=== PATIENT | female | born 1960 | race Caucasian/White ===

== ENCOUNTER 2021-07-18 00:35 | Inpatient (IN) | payer BC ==
[2021-07-18] VITALS (683 sets, daily range): BP systolic 63–158; BP diastolic 50–109; PULSE 62–74; TEMP 97.5–97.8; O2SAT 78–100
[~2021-07-18] VITALS: Ht 170.2 cm; Wt 84.8 kg
[2021-07-18 01:05] LABS: BASO % 0.1 % (0.0-2.0); GRAN # 7.9 (1.4-6.5); GRAN % 86.4 % (42.2-75.2); HEMATOCRIT 40.4 % (37.0-47.0); HEMOGLOBIN 14.1 g/dl (12.5-16.0); LYMPH # 0.9 (1.2-3.4); LYMPH % 9.3 % (20.0-51.0); MEAN CELL VOLUME 84 fl (80.0-100.0); MEAN CORPUSCULAR HEMOGLOBIN 29 pg (27.0-31.0); MEAN CORPUSCULAR HGB CONC 35 g/dl (33.0-37.0); MEAN PLATELET VOLUME 9.6 fl (7.4-10.4); MONO # 0.3 (0.1-0.6); MONO % 3.7 % (1.7-9.3); PLATELET COUNT 244 K/mm3 (130-400); RED BLOOD COUNT 4.82 M/mm3 (4.10-5.30); REDCELL DISTRIBUTION WIDTH-CV 13.2 % (11.5-14.5)
[2021-07-18 01:22] LABS: ALBUMIN 2.9 gm/dL (3.4-4.8); BILIRUBIN,TOTAL 0.5 mg/dL (0.2-1.2); CALCIUM 8.5 mg/dL (8.4-10.2); CREATININE, serum 1.44 mg/dL (0.57-1.11); POTASSIUM 3.2 mmol/L (3.5-4.5); TOTAL PROTEIN 6.8 gm/dL (6.2-8.1)
[2021-07-18 01:41] LABS: TROPONIN-I 0.114 ng/mL (0.00-0.033)
[2021-07-18 03:39] LABS: ARTERIAL BLD GAS O2 SATURATION 88.4 % (92-100); ARTERIAL BLD GAS TCO2 CT 22.9; ARTERIAL BLOOD GAS BASE EXCESS 0.1 (-2-2); ARTERIAL BLOOD GAS PCO2 28.7 mmHg (35-45); ARTERIAL BLOOD GAS PO2 51.8 mmHg (80-100)
[2021-07-18 05:04] LABS: ARTERIAL BLD GAS O2 SATURATION 88.6 % (92-100); ARTERIAL BLD GAS TCO2 CT 23.7; ARTERIAL BLOOD GAS BASE EXCESS 0.4 (-2-2); ARTERIAL BLOOD GAS HCO3 22.8 meq/L (22-26); ARTERIAL BLOOD GAS PCO2 30.6 mmHg (35-45); ARTERIAL BLOOD GAS PO2 52.1 mmHg (80-100); ARTERIAL BLOOD GAS pH 7.49 (7.35-7.45)
[2021-07-18 05:44] LABS: BASO % 0.1 % (0.0-2.0); GRAN # 7.8 (1.4-6.5); GRAN % 88.9 % (42.2-75.2); HEMATOCRIT 39.4 % (37.0-47.0); HEMOGLOBIN 13.5 g/dl (12.5-16.0); LYMPH # 0.7 (1.2-3.4); LYMPH % 7.9 % (20.0-51.0); MEAN CELL VOLUME 85 fl (80.0-100.0); MEAN CORPUSCULAR HEMOGLOBIN 29 pg (27.0-31.0); MEAN CORPUSCULAR HGB CONC 34 g/dl (33.0-37.0); MEAN PLATELET VOLUME 9.7 fl (7.4-10.4); MONO # 0.2 (0.1-0.6); MONO % 2.6 % (1.7-9.3); PLATELET COUNT 229 K/mm3 (130-400); RED BLOOD COUNT 4.62 M/mm3 (4.10-5.30); REDCELL DISTRIBUTION WIDTH-CV 13.4 % (11.5-14.5)
--- NOTE | 2021-07-18 07:00 | NUR ---
RECEIVED REPORT FROM JEANNIE CHISHOLM. PT SITTING UP IN BED ON BIPAP AT 85%. VSS. CALL LIGHT WITHIN REACH.
[2021-07-18 07:05] LABS: CALCIUM 8.3 mg/dL (8.4-10.2); CREATININE, serum 1.16 mg/dL (0.57-1.11); POTASSIUM 3.9 mmol/L (3.5-4.5)
[2021-07-18 07:13] LABS: TROPONIN-I 6 HR POST INITIAL 1.008 ng/mL (0.00-0.033)
--- NOTE | 2021-07-18 07:45 | NUR ---
RT AT BEDSIDE PERFORMING EKG. PLACES PT ON 85% BIPAP AT THIS TIME.
[2021-07-18 09:14] LABS: PARTIAL THROMBOPLASTIN TIME 24.8 SECONDS (26.0-37.0)
--- NOTE | 2021-07-18 13:36 | NUR ---
SW attempted to contact patient's son, Uzair ([phone]), listed as NOK. Patient is in isolation d/t COVID precautions. This worker left vm for son to contact me regarding d/c planning. SW will follow up
--- NOTE | 2021-07-18 21:06 | NUR ---
Assessment complete and charted. Patient ambulated to restroom- shortness of breath present. Was able to maintain oxygen saturations. Denies needs at this time. Call light in reach.
--- NOTE | 2021-07-18 22:00 | NUR ---
Patient bipap settings originally 14 over 8 and 75% fiO2. Patient oxygen saturations in high 80s. Respiratory changed settings to 14 over 10 and FiO2 of 80%. Greta barajas
[2021-07-19] VITALS (664 sets, daily range): BP systolic 136–149; BP diastolic 70–116; PULSE 67–76; TEMP 98–99.4; O2SAT 73–100
--- NOTE | 2021-07-19 00:15 | NUR ---
Resting in bed. Denies needs. Call light in reach.
[2021-07-19 04:14] LABS: ARTERIAL BLD GAS O2 SATURATION 97.6 % (92-100); ARTERIAL BLD GAS TCO2 CT 22.6; ARTERIAL BLOOD GAS BASE EXCESS -0.7 (-2-2); ARTERIAL BLOOD GAS HCO3 21.6 meq/L (22-26); ARTERIAL BLOOD GAS PCO2 29.6 mmHg (35-45); ARTERIAL BLOOD GAS PO2 92.5 mmHg (80-100); ARTERIAL BLOOD GAS pH 7.48 (7.35-7.45)
--- NOTE | 2021-07-19 06:40 | NUR ---
Patient remained on bipap throughout night. Uneventful. Resting in bed this AM. Call light in reach.
--- NOTE | 2021-07-19 07:04 | NUR ---
Report given to JEANNIE Chisholm
[2021-07-19 07:07] LABS: BASO % 0.1 % (0.0-2.0); GRAN # 13.1 K/mm3 (1.4-6.5); HEMATOCRIT 38.5 % (37.0-47.0); LYMPH # 1.5 K/mm3 (1.2-3.4); LYMPH % 9.7 % (20.0-51.0); MEAN CELL VOLUME 87 fl (80.0-100.0); MEAN CORPUSCULAR HEMOGLOBIN 29 pg (27.0-31.0); MEAN CORPUSCULAR HGB CONC 34 g/dl (33.0-37.0); MEAN PLATELET VOLUME 9.8 fl (7.4-10.4); MONO # 0.5 K/mm3 (0.1-0.6); MONO % 3.1 % (1.7-9.3); PLATELET COUNT 317 K/mm3 (130-400); RED BLOOD COUNT 4.43 M/mm3 (4.10-5.30); REDCELL DISTRIBUTION WIDTH-CV 13.7 % (11.5-14.5)
[2021-07-19 07:15] LABS: CALCIUM 8.1 mg/dL (8.4-10.2); CREATININE, serum 0.84 mg/dL (0.57-1.11); POTASSIUM 3.9 mmol/L (3.5-4.5)
--- NOTE | 2021-07-19 10:48 | NUR ---
Pt tolerated trip to CT and back well.
--- NOTE | 2021-07-19 19:59 | NUR ---
Assessment complete and charted. Patient denies needs at this time. Denies shortness of breath. On bipap. call light in reach.
[2021-07-20] VITALS (648 sets, daily range): BP systolic 142–162; BP diastolic 79–99; PULSE 60–76; TEMP 97.8–98.7; O2SAT 77–100
[2021-07-20 04:02] LABS: ARTERIAL BLD GAS TCO2 CT 23.3; ARTERIAL BLOOD GAS BASE EXCESS -0.1 (-2-2); ARTERIAL BLOOD GAS HCO3 22.4 meq/L (22-26); ARTERIAL BLOOD GAS PCO2 30.1 mmHg (35-45); ARTERIAL BLOOD GAS PO2 71.2 mmHg (80-100); ARTERIAL BLOOD GAS pH 7.49 (7.35-7.45)
[2021-07-20 06:20] LABS: HEMOGLOBIN 11.7 g/dl (12.5-16.0); MEAN CELL VOLUME 87 fl (80.0-100.0); MEAN CORPUSCULAR HEMOGLOBIN 29 pg (27.0-31.0); MEAN CORPUSCULAR HGB CONC 34 g/dl (33.0-37.0); MEAN PLATELET VOLUME 9.4 fl (7.4-10.4); PLATELET COUNT 286 K/mm3 (130-400); RED BLOOD COUNT 3.98 M/mm3 (4.10-5.30); REDCELL DISTRIBUTION WIDTH-CV 13.7 % (11.5-14.5)
--- NOTE | 2021-07-20 06:23 | NUR ---
Patient wore bipap throughout night. Uneventful night. Resting in bed this AM. Call light in reach.
[2021-07-20 06:33] LABS: HEMATOCRIT 34.6 % (37.0-47.0)
[2021-07-20 06:39] LABS: CALCIUM 7.8 mg/dL (8.4-10.2); CREATININE, serum 0.75 mg/dL (0.57-1.11)
--- NOTE | 2021-07-20 07:00 | NUR ---
Redrew HepXa due to critial high level. New results pending
--- NOTE | 2021-07-20 07:36 | NUR ---
Report given to JEANNIE Levine
--- NOTE | 2021-07-20 09:59 | NUR ---
Alerat and oriented and in no distress. Patient's 02 mid 90's on 75% BIPAP. Switched to airvo to give pills and allow to eat. Reports not feeling increased shortness of breath, however, 02 decreased to low 80's after approximately 15 on Airvo at 90%. Bipap replaced at previous settings. May attempt airvo later as able.
--- NOTE | 2021-07-20 16:00 | NUR ---
Assisted up to bedside commode; tolerated transfer well. Denies any other concerns or complaints at this time. Will continue to monitor.
--- NOTE | 2021-07-20 21:30 | NUR ---
Assessment complete and charted. Patient up to bedside commode. On airvo. Tolerating well and maintaining oxygen with 60L and 90%. Returned to bed. Denies other needs. Call light in reach.
--- NOTE | 2021-07-20 22:00 | NUR ---
Pedro back on bipap at this time
[2021-07-21] VITALS (604 sets, daily range): BP systolic 165–179; BP diastolic 72–90; PULSE 65–73; TEMP 98–98.6; O2SAT 75–98
[2021-07-21 04:00] LABS: ARTERIAL BLD GAS O2 SATURATION 96.4 % (92-100); ARTERIAL BLD GAS TCO2 CT 21.7; ARTERIAL BLOOD GAS BASE EXCESS -0.6 (-2-2); ARTERIAL BLOOD GAS HCO3 20.9 meq/L (22-26); ARTERIAL BLOOD GAS PCO2 26.4 mmHg (35-45); ARTERIAL BLOOD GAS PO2 80.1 mmHg (80-100); ARTERIAL BLOOD GAS pH 7.52 (7.35-7.45)
[2021-07-21 04:25] LABS: HEMOGLOBIN 12.2 g/dl (12.5-16.0); MEAN CELL VOLUME 85 fl (80.0-100.0); MEAN CORPUSCULAR HEMOGLOBIN 29 pg (27.0-31.0); MEAN CORPUSCULAR HGB CONC 34 g/dl (33.0-37.0); MEAN PLATELET VOLUME 9.5 fl (7.4-10.4); PLATELET COUNT 220 K/mm3 (130-400); RED BLOOD COUNT 4.18 M/mm3 (4.10-5.30); REDCELL DISTRIBUTION WIDTH-CV 13.7 % (11.5-14.5)
[2021-07-21 04:26] LABS: HEMATOCRIT 35.7 % (37.0-47.0)
[2021-07-21 04:39] LABS: C-REACTIVE PROTEIN 5.4 mg/dL (0.00-0.50); CALCIUM 7.9 mg/dL (8.4-10.2); CREATININE, serum 0.69 mg/dL (0.57-1.11); POTASSIUM 4.1 mmol/L (3.5-4.5)
[2021-07-21 05:04] LABS: LYMPHOCYTE 5 % (20.0-51.0); NEUTROPHILS 94 % (42.0-75.2)
[2021-07-21 05:06] LABS: HYPOCHROMIA 2+; PLATELET ESTIMATE NORMAL (NORMAL)
--- NOTE | 2021-07-21 06:30 | NUR ---
Patient had uneventful night. On airvo this AM. Call light in reach.
--- NOTE | 2021-07-21 07:19 | NUR ---
Report given to JEANNIE Levine
--- NOTE | 2021-07-21 08:00 | NUR ---
Continues to tolerate Airvo well with s. Denies feeling increased work of breathing or shorness of breath unless coughing. Encouraged to eat breakfast. Assisted up to use the bedside commode, tolerates well but does have increased coughing with exertion. Call light left within reach; will continue to monitor.
--- NOTE | 2021-07-21 09:23 | NUR ---
Organic Search Lead faxed referral to [facility] at [phone]
--- NOTE | 2021-07-21 19:50 | NUR ---
This evening patient reported that her right arm felt "tight". Arm observed and forearm noted to be larger than the left and firm to the touch. Radial pulse +2. Upper arm circumference was the same as previously measured by AIVS RN. Hospitalist notified. Will obtain venous duplex when available.
[2021-07-22] VITALS (687 sets, daily range): BP systolic 132–174; BP diastolic 71–92; PULSE 57–78; TEMP 98–99; O2SAT 67–99
[2021-07-22 04:13] LABS: HEMOGLOBIN 12.9 g/dl (12.5-16.0); MEAN CELL VOLUME 87 fl (80.0-100.0); MEAN CORPUSCULAR HEMOGLOBIN 30 pg (27.0-31.0); MEAN CORPUSCULAR HGB CONC 34 g/dl (33.0-37.0); MEAN PLATELET VOLUME 9.7 fl (7.4-10.4); PLATELET COUNT 181 K/mm3 (130-400); RED BLOOD COUNT 4.37 M/mm3 (4.10-5.30); REDCELL DISTRIBUTION WIDTH-CV 13.7 % (11.5-14.5)
[2021-07-22 04:42] LABS: ALBUMIN 2.6 gm/dL (3.4-4.8); BILIRUBIN,TOTAL 0.8 mg/dL (0.2-1.2); C-REACTIVE PROTEIN 5.4 mg/dL (0.00-0.50); CALCIUM 8.3 mg/dL (8.4-10.2); CREATININE, serum 0.75 mg/dL (0.57-1.11); POTASSIUM 4.1 mmol/L (3.5-4.5); TOTAL PROTEIN 5.7 gm/dL (6.2-8.1)
[2021-07-22 04:59] LABS: ARTERIAL BLD GAS O2 SATURATION 96.8 % (92-100); ARTERIAL BLD GAS TCO2 CT 22.8; ARTERIAL BLOOD GAS BASE EXCESS 0.3 (-2-2); ARTERIAL BLOOD GAS HCO3 21.9 meq/L (22-26); ARTERIAL BLOOD GAS PCO2 27.4 mmHg (35-45); ARTERIAL BLOOD GAS PO2 81.6 mmHg (80-100); ARTERIAL BLOOD GAS pH 7.52 (7.35-7.45)
[2021-07-22 05:27] LABS: BAND 2 % (0-10); LYMPHOCYTE 5 % (20.0-51.0); NEUTROPHILS 92 % (42.0-75.2); PLATELET ESTIMATE NORMAL (NORMAL)
--- NOTE | 2021-07-22 07:00 | NUR ---
PT RESTING IN BED ON BIPAP. VSS. WILL CONTINUE TO MONTIOR.
--- NOTE | 2021-07-22 19:39 | NUR ---
Received report from JEANNIE Nathan. Patient in airborne/contact precautions d/t positive covid status. Patient laying in bed watching TV. VSS. No concerns or complaints noted from patient at this time. Will resume care of patient at this time.
--- NOTE | 2021-07-22 21:49 | NUR ---
RT Melita placed patient on bipap. VSS. Patient agreed to wear bipap for 4 hours throughout the night. No concerns or complaints noted from patient at this time.
[2021-07-23] VITALS (568 sets, daily range): BP systolic 94–195; BP diastolic 44–98; PULSE 59–90; TEMP 97.8–99; O2SAT 81–98
[2021-07-23 05:46] LABS: HEMOGLOBIN 12.5 g/dl (12.5-16.0); MEAN CELL VOLUME 87 fl (80.0-100.0); MEAN CORPUSCULAR HEMOGLOBIN 29 pg (27.0-31.0); MEAN CORPUSCULAR HGB CONC 34 g/dl (33.0-37.0); MEAN PLATELET VOLUME 10.1 fl (7.4-10.4); PLATELET COUNT 229 K/mm3 (130-400); RED BLOOD COUNT 4.26 M/mm3 (4.10-5.30); REDCELL DISTRIBUTION WIDTH-CV 13.9 % (11.5-14.5)
[2021-07-23 06:03] LABS: C-REACTIVE PROTEIN 9.5 mg/dL (0.00-0.50); CALCIUM 8.3 mg/dL (8.4-10.2); CREATININE, serum 0.76 mg/dL (0.57-1.11)
[2021-07-23 06:24] LABS: BAND 1 % (0-10); LYMPHOCYTE 7 % (20.0-51.0); METAMYELOCYTE 1 % (0-0); NEUTROPHILS 90 % (42.0-75.2); PLATELET ESTIMATE NORMAL (NORMAL)
[2021-07-23 06:50] LABS: ARTERIAL BLD GAS TCO2 CT 22.2; ARTERIAL BLOOD GAS BASE EXCESS -0.2 (-2-2); ARTERIAL BLOOD GAS HCO3 21.4 meq/L (22-26); ARTERIAL BLOOD GAS PCO2 26.9 mmHg (35-45); ARTERIAL BLOOD GAS PO2 69.5 mmHg (80-100); ARTERIAL BLOOD GAS pH 7.52 (7.35-7.45)
--- NOTE | 2021-07-23 07:00 | NUR ---
Pt in bed resting on bipap. Pt is tachypnic and bp elevated. Previous RN spoke with Flor and ativan given. Will continue to montior closely.
--- NOTE | 2021-07-23 12:33 | NUR ---
PT HAS BEEN TACHYPNIC THROUGH OUT THE MORNING. PT COMFORTED AND REASSURED. BIPAP IN PLACE ALL MORNING. DR. REEVES NOTIFIED AND ASSESSED PT. PT PLACED ON PRECEDEX DRIP AND BIPAP INCREASED TO 100%. PT COMFORTED AND INSTRUCTED TO TRY AND SLOW HER BREATHING. PT CHANGED, REPOSITIONED, NEW BLANKETS GIVEN, AND PRECEDEX INCREASED. SPOKE WITH AND TOCILIZUMAB STARTED. PT SATING MID 90'S AT THIS TIME. WILL CONTINUE TO MONTIOR CLOSELY.
--- NOTE | 2021-07-23 19:36 | NUR ---
Received report from JEANNIE Nathan. All medications verified and all questions answered. Patient resting in bed watching TV. Patient in airborne/contact precautions d/t positive covid status. VSS. Patient on bipap at 100%. No concerns or complaints noted from patient at this time. Will resume care of patient at this time.
[2021-07-24] VITALS (208 sets, daily range): BP systolic 99–187; BP diastolic 53–86; PULSE 59–111; TEMP 97.7–98.7; O2SAT 85–100
[2021-07-24 03:22] LABS: ARTERIAL BLD GAS TCO2 CT 22.6; ARTERIAL BLOOD GAS BASE EXCESS -1.3 (-2-2); ARTERIAL BLOOD GAS HCO3 21.6 meq/L (22-26); ARTERIAL BLOOD GAS PO2 97.8 mmHg (80-100); ARTERIAL BLOOD GAS pH 7.46 (7.35-7.45)
[2021-07-24 05:09] LABS: HEMOGLOBIN 11.8 g/dl (12.5-16.0); MEAN CELL VOLUME 89 fl (80.0-100.0); MEAN CORPUSCULAR HEMOGLOBIN 30 pg (27.0-31.0); MEAN CORPUSCULAR HGB CONC 33 g/dl (33.0-37.0); MEAN PLATELET VOLUME 10.1 fl (7.4-10.4); PLATELET COUNT 261 K/mm3 (130-400); RED BLOOD COUNT 3.99 M/mm3 (4.10-5.30); REDCELL DISTRIBUTION WIDTH-CV 13.9 % (11.5-14.5)
[2021-07-24 05:22] LABS: HEMATOCRIT 35.3 % (37.0-47.0)
[2021-07-24 05:31] LABS: C-REACTIVE PROTEIN 8.4 mg/dL (0.00-0.50); CALCIUM 8.4 mg/dL (8.4-10.2); CREATININE, serum 0.82 mg/dL (0.57-1.11); POTASSIUM 4.3 mmol/L (3.5-4.5)
[2021-07-24 06:09] LABS: LYMPHOCYTE 3 % (20.0-51.0); METAMYELOCYTE 1 % (0-0); NEUTROPHILS 95 % (42.0-75.2)
[2021-07-24 06:10] LABS: PLATELET ESTIMATE NORMAL (NORMAL)
--- NOTE | 2021-07-24 08:40 | NUR ---
Dr. Simpson at bedside to discuss plan of care. Recommending intubation. Patient called son to discuss with him. Patient then verbalized agreement to intubation at this time. Anesthesia notified.
--- NOTE | 2021-07-24 09:19 | NUR ---
Anethesisa at bedside; discussing intubation with patient. Medications given and intubated at 0923. Tolerated procedure well.
--- NOTE | 2021-07-24 09:44 | NUR ---
PT INTUBATED W/O INCIDENT.
--- NOTE | 2021-07-24 10:30 | NUR ---
Will hold off on chest CT for today per Dr. Simpson.
--- NOTE | 2021-07-24 11:32 | NUR ---
poultry husbandry worker spoke with patient's son, Uzair ([phone]) this a.m. Son was notified of patient's intubation earlier today.
[2021-07-24 11:39] LABS: MAGNESIUM 2.6 mg/dL (1.6-2.6); PHOSPHOROUS 5.3 mg/dL (2.3-4.7)
[2021-07-24 12:59] LABS: ARTERIAL BLD GAS TCO2 CT 18.3; ARTERIAL BLOOD GAS BASE EXCESS -5.7 (-2-2); ARTERIAL BLOOD GAS HCO3 17.5 meq/L (22-26); ARTERIAL BLOOD GAS PCO2 27.6 mmHg (35-45); ARTERIAL BLOOD GAS PO2 67.1 mmHg (80-100); ARTERIAL BLOOD GAS pH 7.42 (7.35-7.45)
--- NOTE | 2021-07-24 16:05 | NUR ---
Proned at this time with 3 staff members. Tolerated well; will continue to monitor.
--- NOTE | 2021-07-24 17:29 | NUR ---
Sedation vacation not done due to being proned.
[2021-07-25] VITALS (682 sets, daily range): BP systolic 83–201; BP diastolic 37–100; PULSE 50–118; TEMP 97.7–98.7; O2SAT 83–100
--- NOTE | 2021-07-25 03:10 | NUR ---
PATIENT SEDATED AND ONLY RESPONSIVE TO DEEP STIMULATION NOTED SBP AND MEAN OUT OF PARAMETERS DECREASED SEDATION WITHOUT ADEQUATE RESPONSE AND PREVIOUSLY NOTED THAT PATIENT WAS NOT SEDATED ON LOWER DOSE OF MEDICATIONS THEREFORE INITIATED LEVOPHED ORDERED AT 0250 AND TITRATED TO MAINTAIN SBP AND MEAN WITHIN PARAMETERS BY 0305 LEVOPHED AT 0.01 MCG/KG/MIN
[2021-07-25 04:43] LABS: ARTERIAL BLD GAS O2 SATURATION 94.9 % (92-100); ARTERIAL BLD GAS TCO2 CT 19.5; ARTERIAL BLOOD GAS BASE EXCESS -4.6 (-2-2); ARTERIAL BLOOD GAS HCO3 18.6 meq/L (22-26); ARTERIAL BLOOD GAS PCO2 29.2 mmHg (35-45); ARTERIAL BLOOD GAS pH 7.42 (7.35-7.45)
[2021-07-25 04:49] LABS: HEMOGLOBIN 12.1 g/dl (12.5-16.0); MEAN CELL VOLUME 89 fl (80.0-100.0); MEAN CORPUSCULAR HEMOGLOBIN 29 pg (27.0-31.0); MEAN CORPUSCULAR HGB CONC 33 g/dl (33.0-37.0); MEAN PLATELET VOLUME 9.7 fl (7.4-10.4); RED BLOOD COUNT 4.13 M/mm3 (4.10-5.30)
[2021-07-25 04:53] LABS: HEMATOCRIT 36.9 % (37.0-47.0); PLATELET COUNT 409 K/mm3 (130-400)
--- NOTE | 2021-07-25 05:40 | NUR ---
PATIENT SEDATED ONLY RESPOSIVE TO PAINFUL STIMULI DECREASED SEDATION OF FENTANYL AND PROPOFOL AT THIS TIME
[2021-07-25 05:43] LABS: BAND 3 % (0-10); LYMPHOCYTE 4 % (20.0-51.0); NEUTROPHILS 91 % (42.0-75.2); PLATELET ESTIMATE NORMAL (NORMAL)
[2021-07-25 05:57] LABS: CALCIUM 8.4 mg/dL (8.4-10.2); CREATININE, serum 0.84 mg/dL (0.57-1.11); POTASSIUM 4.1 mmol/L (3.5-4.5)
--- NOTE | 2021-07-25 08:00 | NUR ---
MORNING ASSESSMENT COMPLETE. EDEMA NOTED TO RIGHT HAND, KNOWN CLOT IN RT ARM, MD AND PICC RN AWARE. WILL CONITNUE TO USE PICC LINE. RT AND SECOND NURSE IN ROOM TO UN-PRONE PT. TOLERATED WELL. WILL CONTINUE TO MONITOR.
--- NOTE | 2021-07-25 08:15 | NUR ---
SEDATION TITRATED PT BEING POSITIONED FROM PRONE TO SUPINE, RESTLESS/AGITATED. WILL CONTINUE TO MONITOR.
--- NOTE | 2021-07-25 09:00 | NUR ---
Informed of ultrasound result done on patient's right arm. PICC intact right upper arm with sterile dressing change done. caps changed, and flushed both lumens normal saline with good blood return noted. minimal right hand swelling noted. no firmess of forearm noted.
--- NOTE | 2021-07-25 09:34 | NUR ---
Turn Machine Operator called and spoke with patient's son, Uzair, regarding referral to [facility] ([place] Left vm for Vineet at [facility] to contact patient's son with questions. SW will continue to follow.
--- NOTE | 2021-07-25 11:28 | NUR ---
Spa Host faxed clinical updates to Vineet at [facility]
--- NOTE | 2021-07-25 12:17 | NUR ---
PT APPEARS TO BE SEDATED WELL, HOWEVER BREATHING OVER THE VENT AND INCREASING TV. WILL GIVE PRN VECC AND CONTINUE TO MONITOR.
[2021-07-25 12:38] LABS: MAGNESIUM 2.8 mg/dL (1.6-2.3); PHOSPHOROUS 5.1 mg/dL (2.5-4.5)
--- NOTE | 2021-07-25 14:30 | NUR ---
PT ALERT WHEN RN ENTERED ROOM. ABLE TO FOLLOW COMMANDS, NOD YES/SHAKE HEAD NO IN RESPONSE TO QUESTIONS. DENIES PAIN. REORIENTED PT TO ROOM AND POC. WHILE ALERT, PT BREATHING OVER VENT/STACKING BREATHS. WILL TITRATE SEDATION PER ORDERS.
--- NOTE | 2021-07-25 15:10 | NUR ---
PT OPENED EYES SPONTANEOUS WHEN RN ENTERED ROOM. SQUEEZED HAND ON COMMAND. PT ASKED "ARE YOU IN PAIN", SHOOK HEAD NO. RN ASKED "DO YOU WANT TO BE MORE ASLEEP", PT SHOOK HEAD NO. RN EXPLAINED IMPORTANCE OF RELAXING, LETTING VENTILATOR DO THE WORK FOR HER. PT'S HR AND RESPIRATIONS CONTINUE TO BE TACHY. WILL CONTINUE TO MONITOR AND SEDATE NEEDED. SON ALSO CALLED, UPDATED.
--- NOTE | 2021-07-25 15:25 | NUR ---
INITIATING PRECEDEX, PT BREATHING 32, BITING VENT. WILL TITRATE PER ORDER
--- NOTE | 2021-07-25 15:25 | NUR ---
PT IS BITING VENT, BREATHING OVER SET RATE, AND INCREASED TV WITH BREATH STACKING. STARTING PRECEDEX FOR INCREASED SEDATION. WILL TITRATE PER PROTOCOL. CONTINUING TO MONITOR.
--- NOTE | 2021-07-25 18:56 | NUR ---
PT PRONED, TOLERATED WELL.
--- NOTE | 2021-07-25 23:10 | NUR ---
NOTED PATIENT INCREASED B/P AND MEAN TITRATION OF LEVO TO LOWER DOSE AT THIS TIME
--- NOTE | 2021-07-25 23:11 | NUR ---
PATIENT REPOSITIONED JUST PRIOR TO THIS TIME, NOTED DECREASE IN B/P BELOW PARAMETERS LEVOPHED INCREASED PER ORDERS
--- NOTE | 2021-07-25 23:20 | NUR ---
PATIENT B/P RESPONDED WELL TO INCREASE DOSE OF LEVOPHED ABLE TO TIRATE DOWN TO PREVIOUS LEVEL AT THIS TIME
[2021-07-26] VITALS (744 sets, daily range): BP systolic 108–176; BP diastolic 43–70; PULSE 44–87; TEMP 96.5–97.6; O2SAT 62–100
--- NOTE | 2021-07-26 00:30 | NUR ---
noted residual tube feedings of 450ml per orders tube feddings stopped at this time will check residuals at 0230
--- NOTE | 2021-07-26 04:00 | NUR ---
NOTED PATIENT REMAINS WITH TUBE FEEDING RESIDUALS OF 300ML, TUBE FEEDINGS CONTINUE TO BE ON HOLD PENDING KUB TO BE OBTAINED IN AM AFTER PATIENT IS SUPINE
[2021-07-26 04:24] LABS: ARTERIAL BLD GAS O2 SATURATION 98.9 % (92-100); ARTERIAL BLD GAS TCO2 CT 19.4; ARTERIAL BLOOD GAS BASE EXCESS -5.7 (-2-2); ARTERIAL BLOOD GAS HCO3 18.4 meq/L (22-26); ARTERIAL BLOOD GAS PCO2 31.7 mmHg (35-45); ARTERIAL BLOOD GAS pH 7.38 (7.35-7.45)
[2021-07-26 04:31] LABS: ARTERIAL BLOOD GAS PO2 174.8 mmHg (80-100)
[2021-07-26 05:20] LABS: HEMOGLOBIN 11.8 g/dl (12.5-16.0); MEAN CELL VOLUME 90 fl (80.0-100.0); MEAN CORPUSCULAR HEMOGLOBIN 29 pg (27.0-31.0); MEAN CORPUSCULAR HGB CONC 33 g/dl (33.0-37.0); MEAN PLATELET VOLUME 9.8 fl (7.4-10.4); PLATELET COUNT 394 K/mm3 (130-400); RED BLOOD COUNT 4.02 M/mm3 (4.10-5.30); REDCELL DISTRIBUTION WIDTH-CV 14.1 % (11.5-14.5)
--- NOTE | 2021-07-26 05:22 | NUR ---
PO2 FOR AM ABG WAS READ AT 174 SO PRAVIN (), WAS CALLED TO REPORT VALUES AND SHE REQUESTED THE DROP OF PEEP AND FIO2 TO A PEEP OF 13, AND FIO2 OF 60% AT THIS TIME. PATIENT SPO2 STILL REMAINS GREATER THAN 97%.
[2021-07-26 05:28] LABS: HEMATOCRIT 36.1 % (37.0-47.0)
[2021-07-26 05:37] LABS: CALCIUM 7.8 mg/dL (8.4-10.2); CREATININE, serum 0.81 mg/dL (0.57-1.11); MAGNESIUM 2.9 mg/dL (1.6-2.6); PHOSPHOROUS 4.1 mg/dL (2.3-4.7); POTASSIUM 4.2 mmol/L (3.5-4.5)
--- NOTE | 2021-07-26 05:43 | NUR ---
PATIENT IS CURRENTLY PRONED SEDATION VACATION NOT APPROPRIATE AT THIS TIME
[2021-07-26 06:33] LABS: BAND 7 % (0-10); LYMPHOCYTE 6 % (20.0-51.0)
[2021-07-26 06:34] LABS: EOSINOPHIL 8 % (0-4); NEUTROPHILS 77 % (42.0-75.2); PLATELET ESTIMATE NORMAL (NORMAL)
--- NOTE | 2021-07-26 08:22 | NUR ---
Assisted RN with unproning patient.
--- NOTE | 2021-07-26 09:30 | NUR ---
Patient had persisent low SPO2 at approx 82% for extended period of time after patient was turned supine this morning. Dr. Simpson contacted after SALOONKEEPER was unable to keep spo2 up. He gives order for vent changes and gives permission to take patient to Chest CT as long as the SP02 is 88 or greater. After vent settings changed, SPO2 improves and patient taken to CT. He requests that Dr. Lieberman call him to discuss the need to transfer to hospital with ECMO after reviewing the CT. Will notify Dr. Lieberman.
--- NOTE | 2021-07-26 10:06 | NUR ---
AFTER PRONING PATIENTS SPO2 DROPPED AND STAYED LOW TO MID 80%. SPOKE WITH DR. REEVES PEEP INCREASED 15 AND FIO2 100%.
--- NOTE | 2021-07-26 11:32 | NUR ---
Dr. Lieberman notified of Dr. Simpson wanting to talk to him about transfer. He calls Dr. Simpson. Dr. Lieberman will call [facility] or [facility] to see if she is able to transfer for ECMO services.
[2021-07-26 11:50] LABS: ARTERIAL BLD GAS O2 SATURATION 82.9 % (92-100); ARTERIAL BLD GAS TCO2 CT 20.4; ARTERIAL BLOOD GAS BASE EXCESS -6.1 (-2-2); ARTERIAL BLOOD GAS HCO3 19.2 meq/L (22-26); ARTERIAL BLOOD GAS PCO2 37.6 mmHg (35-45); ARTERIAL BLOOD GAS pH 7.33 (7.35-7.45)
--- NOTE | 2021-07-26 13:24 | NUR ---
AT 1228 VERBAL WAS GIVEN TO REPRONE PATIENT AND CHANGE VENT SETTINGS TO VT 500 RATE 24 PEEP OF 18 AND 100% FIO2 AND REPEAT BLOOD GAS IN 1 HOUR.
[2021-07-26 14:20] LABS: ARTERIAL BLD GAS TCO2 CT 19.9; ARTERIAL BLOOD GAS BASE EXCESS -4.8 (-2-2); ARTERIAL BLOOD GAS PCO2 31.6 mmHg (35-45); ARTERIAL BLOOD GAS PO2 251.5 mmHg (80-100)
--- NOTE | 2021-07-26 15:10 | NUR ---
DR. REEVES CALLS AND GIVES ORDER TO DECREASE FI02 TO 50% AND REDRAW ABG AT 1630. NAPKIN BAND WRAPPER NOTIFIED.
--- NOTE | 2021-07-26 16:30 | NUR ---
MARIA ELENA MONROE, CALLS FOR UPDATE AT THIS TIME.
[2021-07-26 16:33] LABS: ARTERIAL BLD GAS O2 SATURATION 90.5 % (92-100); ARTERIAL BLD GAS TCO2 CT 20.3; ARTERIAL BLOOD GAS BASE EXCESS -5.7 (-2-2); ARTERIAL BLOOD GAS HCO3 19.2 meq/L (22-26); ARTERIAL BLOOD GAS PCO2 35.6 mmHg (35-45); ARTERIAL BLOOD GAS PO2 60.9 mmHg (80-100); ARTERIAL BLOOD GAS pH 7.35 (7.35-7.45)
--- NOTE | 2021-07-26 16:55 | NUR ---
INCREASED PATIENTS FIO2 TO 80% FROM 50% DUE TO PATIENT HAVE LOW 80S FOR SPO2.
--- NOTE | 2021-07-26 17:00 | NUR ---
WAS NOTIFIED THAT [facility] AND [facility] HAVE REFUSED THE PATIENT FOR VARIOUS REASONS. FINISH INSPECTOR TO NOTIFY [facility] TO ASSIST WITH FINDING ECMO BED.
--- NOTE | 2021-07-26 20:01 | NUR ---
MARIA ELENA MONROE, UPDATE AT THIS TIME
--- NOTE | 2021-07-26 21:40 | NUR ---
.PATIENT BRADYCARDIC INTO THE 40'S TITRATION OF PRECEDEX DOWN AT THIS TIME DUE TO KNOWN SIDE EFFECT OF THIS DRUG, SPOKE WITH Richmond NORRIS WHO AGREED WITH THIS ACTION
[2021-07-27] VITALS (544 sets, daily range): BP systolic 58–177; BP diastolic 32–63; PULSE 45–98; TEMP 97.3–98.6; O2SAT 81–100
--- NOTE | 2021-07-27 00:36 | NUR ---
NOTED THAT URINE NOT FLOWING IN CATHETER, IRRIGATED WITH 10ML NS AND THEN NOTED RETURN OF YELLOW URINE AND WITH SEDIMENT NOTED IN TUBING
--- NOTE | 2021-07-27 02:00 | NUR ---
0140 AFTER TURNING PATIENT NOTED THAT ARTERIAL BP HAD DECREASED SIGNIFICANTLY ENSURED THAT NO ISSUES WITH ART LINE AND THEN STARTED LEVOPHED PER ORDERS, TITRATIONS TO ATTAIN BP WITHIN PARAMETERS AND MAINTAIN IT THERE FROM 0141 TO 0157.
[2021-07-27 03:51] LABS: ARTERIAL BLD GAS O2 SATURATION 98.4 % (92-100); ARTERIAL BLD GAS TCO2 CT 18.5; ARTERIAL BLOOD GAS BASE EXCESS -5.9 (-2-2); ARTERIAL BLOOD GAS HCO3 17.6 meq/L (22-26); ARTERIAL BLOOD GAS PCO2 28.7 mmHg (35-45); ARTERIAL BLOOD GAS pH 7.41 (7.35-7.45)
[2021-07-27 03:57] LABS: ARTERIAL BLOOD GAS PO2 140.2 mmHg (80-100)
[2021-07-27 04:13] LABS: HEMOGLOBIN 11.8 g/dl (12.5-16.0); MEAN CELL VOLUME 88 fl (80.0-100.0); MEAN CORPUSCULAR HEMOGLOBIN 30 pg (27.0-31.0); MEAN CORPUSCULAR HGB CONC 34 g/dl (33.0-37.0); MEAN PLATELET VOLUME 9.8 fl (7.4-10.4); PLATELET COUNT 351 K/mm3 (130-400); RED BLOOD COUNT 3.96 M/mm3 (4.10-5.30)
[2021-07-27 04:14] LABS: HEMATOCRIT 34.8 % (37.0-47.0)
[2021-07-27 04:34] LABS: CALCIUM 7.8 mg/dL (8.4-10.2); CREATININE, serum 0.81 mg/dL (0.57-1.11); MAGNESIUM 2.8 mg/dL (1.6-2.6); PHOSPHOROUS 3.7 mg/dL (2.3-4.7); POTASSIUM 3.9 mmol/L (3.5-4.5)
[2021-07-27 05:50] LABS: BAND 54 % (0-10); EOSINOPHIL 3 % (0-4); LYMPHOCYTE 3 % (20.0-51.0); METAMYELOCYTE 3 % (0-0); NEUTROPHILS 35 % (42.0-75.2)
--- NOTE | 2021-07-27 05:50 | NUR ---
SEDATION VACATION NOT PREFORMED AT THIS DUE TO PATIENT BEING PRONED, DECREASE IN PRECEDEX DRIP IS DUE TO PATIENT BECOMING BRADYCARDIC INTO THE 40'S
[2021-07-27 05:52] LABS: BURR CELLS 1+; PLATELET ESTIMATE NORMAL (NORMAL); POIKILOCYTOSIS 1+
--- NOTE | 2021-07-27 07:47 | NUR ---
PATIENT'S SON, VINOD PHONED AND UPDATED ON EVENTS OVERNIGHT, INFORMED THAT THERE WAS A POTENTIAL FOR AN ECMO BED IN [place] IF HE WISHED TO PERSUE THAT COURSE OF TREATMENT. VINOD STATED THAT HE STILL WAS NOT SURE, ENCOURAGED TO CONSIDER OPTIONS ECMO BEDS WERE NOT READILY AVAILABLE AND WOULD NEED TO MAKE ARRANGEMENTS FOR TRANSFER
--- NOTE | 2021-07-27 08:00 | NUR ---
ASSESSMENT COMPLETED. PT IS PRONE AT THIS TIME, TOLERATING WELL. DR. REEVES ADVISES TO LEAVE PT PRONED RATHER THAN MOVED TO SUPINE. WILL CONINUTE TO MONITOR.
--- NOTE | 2021-07-27 11:32 | NUR ---
SW informed of family meeting 07/28 at 8:30 to discuss POC. Patient's status changed to DNR per son. SW will continue to follow.
--- NOTE | 2021-07-27 13:37 | NUR ---
Family meeting is set up for 829 tomorrow morning with Florian, son, by Dr Simpson. At this point, I will wait and try to meet with Florian after this meeting and provide support. I understand that Dr Simpson talked at length with Florian this morning, and this is when Florian made the change from full code to DNR and is still considering the possibility of transfer for ECMO and if this would be his mother's wish or not.
--- NOTE | 2021-07-27 13:45 | NUR ---
TWO RNS AND RT IN ROOM TO REPOSITION PT. PT HAD TWO TIMES LOOSE STOOLS WHILE BEING REPOSITIONED, VERY LIQUID AND PROJECTED DOWN BED. RECTAL TUBE PLACED, 45ML WATER IN BALLOON. PT CLEANED AND LINENS CHANGED. WILL CONTINUE TO MONITOR.
--- NOTE | 2021-07-27 17:00 | NUR ---
SEDATION VACATION NOT ATTEMPTED AT THIS TIME PT REMAINS IN THE PRONE POSITION PER ORDER FROM DR. REEVES.
--- NOTE | 2021-07-27 19:05 | NUR ---
Received report from JEANNIE Napoles.
[2021-07-28] VITALS (409 sets, daily range): BP systolic 113–210; BP diastolic 46–80; PULSE 52–120; TEMP 97.3–98.7; O2SAT 77–100
[2021-07-28 05:00] LABS: HEMOGLOBIN 10.8 g/dl (12.5-16.0); MEAN CELL VOLUME 89 fl (80.0-100.0); MEAN CORPUSCULAR HEMOGLOBIN 30 pg (27.0-31.0); MEAN CORPUSCULAR HGB CONC 34 g/dl (33.0-37.0); PLATELET COUNT 291 K/mm3 (130-400); RED BLOOD COUNT 3.61 M/mm3 (4.10-5.30); REDCELL DISTRIBUTION WIDTH-CV 14.2 % (11.5-14.5)
[2021-07-28 05:02] LABS: HEMATOCRIT 32.2 % (37.0-47.0)
[2021-07-28 05:15] LABS: CALCIUM 7.9 mg/dL (8.4-10.2); CREATININE, serum 0.81 mg/dL (0.57-1.11); POTASSIUM 3.6 mmol/L (3.5-4.5)
--- NOTE | 2021-07-28 05:18 | NUR ---
Patient in prone position. No sedation vacation performed.
[2021-07-28 06:00] LABS: BAND 29 % (0-10); BASOPHIL 4 % (0-2); EOSINOPHIL 4 % (0-4); LYMPHOCYTE 7 % (20.0-51.0); METAMYELOCYTE 3 % (0-0); NEUTROPHILS 50 % (42.0-75.2); PLATELET ESTIMATE NORMAL (NORMAL)
[2021-07-28 06:01] LABS: HYPOCHROMIA 1+; TEAR DROP CELLS 1+
--- NOTE | 2021-07-28 08:00 | NUR ---
TWO RNS AND RT IN ROOM, REPOSITIONED PT FROM LOOKING LEFT TO LOOKING RIGHT WHILE REMAINING PRONE. AUSCULTATED RHONCHI IN RT LUNG ARCOS, PT COUGHING AND RT SUCTIONED ET TUBE DURING REPOSITIONING, RHONCHI CLEARED. WILL CONTINUE TO MONITOR.
[2021-07-28 08:17] LABS: ARTERIAL BLD GAS O2 SATURATION 92.2 % (92-100); ARTERIAL BLD GAS TCO2 CT 18.5; ARTERIAL BLOOD GAS BASE EXCESS -6.9 (-2-2); ARTERIAL BLOOD GAS HCO3 17.6 meq/L (22-26); ARTERIAL BLOOD GAS PCO2 31.8 mmHg (35-45); ARTERIAL BLOOD GAS PO2 65.5 mmHg (80-100); ARTERIAL BLOOD GAS pH 7.36 (7.35-7.45)
--- NOTE | 2021-07-28 09:40 | NUR ---
SW participated in family meeting with patient's son, Jone Du RN, bedside RN, Dr. Simpson, and spiritual care to discuss goals of care. Dr Simpson thoroughly explained options of care moving forward and after spending time with the patient and speaking with his grandmother (patient's mother) via phone, as well as much thought and consideration patient's son has decided to proceed with current regime of care going forward. SW offered support and encouragement and will continue to follow patient needs.
--- NOTE | 2021-07-28 10:00 | NUR ---
MEETING WITH PRICE CHECKER, SOCIAL WORK, DR. REEVES, THREE RNS, AND PT'S SON MARIA ELENA. DISCUSSED PROGNOSIS AND POC. SON HELPED TO DON PROPER PPE TO BE ABLE TO SEE PATIENT IN ROOM.
--- NOTE | 2021-07-28 10:55 | NUR ---
Family meeting held with son Florian, Dr Simpson, Daxa Troy RN, Laura Nuñez RN, Brandie Zavaleta grader meat, and Emmanuel, social service technician. Dr Simpson presented three directions for care, pursuing ECMO at tertiary care center, continuing current care here, or focusing on comfort and withdrawal of care. Florian talked with Dr Simpson and the team, and then did call his grandmother, Ari, to talk with her about what to do. She and Florian both agree that they do not believe that she would want to pursue ECMO, stating that she didn't like a lot of medical intervention and had always tried to avoid it. Florian is not ready to stop ventilator here and pursue comfort care at this time. he wants to keep trying to help her get better. He is aware that there will be a long recovery period for her in the best case scenerio but is not ready to stop interventions at this time. Support provided. He is willing to proceed with trach and peg placement as required to keep her treatment going here.
[2021-07-28 11:08] LABS: PARTIAL THROMBOPLASTIN TIME 33.7 SECONDS (26.0-37.0)
--- NOTE | 2021-07-28 11:12 | NUR ---
Initial visit; Patient's son joined [facility]'s Physician and Palliative Care Team for meeting regarding course of care for Regina. Pradeep Du decided that at this time treatment will continue as is for as long as possible.
--- NOTE | 2021-07-28 11:31 | NUR ---
ASSITED RN WITH UNPRONING PATIENT, REPLACED HOLTER AND NOTICED A SORE ON RIGHT SIDE OF CHEEK.
--- NOTE | 2021-07-28 12:00 | NUR ---
PT CURRENTLY ON BACK. MOVED FROM PRONE TO BACK AT 1115, AT PT VITAL SIGNS VERY ERRATIC. BP HITTING 200'S/100'S. INCREASED SEDATION, WELL CHANGING FROM PROPOFOL TO VERSED PER DR. REEVES BASED ON PATIENT'S TRIGLYCERIDES. LOPRESSOR GIVEN TIMES ONE, BP AT 1200 140/58. WILL CONTINUE TO MONITOR.
--- NOTE | 2021-07-28 12:30 | NUR ---
Since prior to unproning patient per Dr. Simpson order, patient has been tachycardic and hypertensive. Changes made to sedation and blood pressure medications given to assist in controlling heart rate and blood pressure. Dr. Simpson contacted and updated multiple times. Will continue to monitor
--- NOTE | 2021-07-28 13:00 | NUR ---
BLOCK CHARTING FROM PRECEDEX TITRATION, INCREASED PER DR. REEVES, PT BP HIGH 296/150'S, FIGHTING VENTILATOR.
--- NOTE | 2021-07-28 13:20 | NUR ---
Dr. Simpson notified about persistent hypoxia, high blood pressure then significant decrease in blood pressure without the help of the labetalol drip (which was never started due to this fluctuation) and increasing sedation significantly. And now evidence of agonal respirations even with the assistance of the ventilator. SPO2 has consistently been in the 78-80% range and nothing has helped. Dr. Simpson gives instruction to call the son, Uzair, with update and recommend proceeding to comfort measures as she is continuing to worsen significantly. JEANNIE Napoles will call Uzair soon to discuss the situation.
[2021-07-28 13:25] LABS: ARTERIAL BLD GAS O2 SATURATION 70.8 % (92-100); ARTERIAL BLD GAS TCO2 CT 21.4; ARTERIAL BLOOD GAS HCO3 20.2 meq/L (22-26); ARTERIAL BLOOD GAS PCO2 38.2 mmHg (35-45); ARTERIAL BLOOD GAS pH 7.34 (7.35-7.45)
[2021-07-28 13:26] LABS: ARTERIAL BLOOD GAS PO2 36.3 mmHg (80-100)
--- NOTE | 2021-07-28 13:30 | NUR ---
CALL TO MARIA ELENA, SON, TO UPDATE ABOUT PT'S STATUS. EXPLAINED CURRENT CONDITION MUCH WORSE THAN WHEN HE WAS HERE EARLIER TODAY. PT'S O2 SAT NOW 80 OR UNDER ON FULL VENTILATOR SUPPORT, BLOOD PRESSUE VERY ERRATIC DESPITE MEASURES TO CONTROL IT. MARIA ELENA STATES UNDERSTANDING THAT "THINGS DONT LOOK VERY GOOD" AND STATES THAT HE "JUST WANTS TO MAKE HER COMFORTABLE" AND HE IS ON HIS WAY IN. WILL CONTINUE FULL SUPPORT FOR PT UNTIL SON IN AT BEDSIDE AND FINAL DECISION IS MADE. DR. REEVES AND DR SEWELL NOTIFIED ON SON'S DECISION.
--- NOTE | 2021-07-28 13:36 | NUR ---
INCREASED PATIENT PEEP UP TO [address] REEVES VERBAL ORDER GIVEN. PO2 STILL 80%, HOWEVER PLANNING TO GO COMFORT CARE WITH SON ON THE WAY.
--- NOTE | 2021-07-28 14:02 | NUR ---
Dr. Lieberman called with update on situation. He will come down to talk to son when he arrives shortly.
--- NOTE | 2021-07-28 14:43 | NUR ---
PATIENT COMPASSIONATELY EXTUBATED AT 1433.
--- NOTE | 2021-07-28 15:00 | NUR ---
1430- PT EXTUBATED BY RT, TWO RN'S IN ROOM TO ASSIST. MABEL ARREDONDO RETURNED TO BEDSIDE TO SIT WITH MOTHER. ONE DOSE OF MORPHINE GIVEN AT 1435. PT DECLARED BY TWO RNS, MYSELF AND JEANNIE LANDIS AT 1450.
--- NOTE | 2021-07-28 15:08 | NUR ---
Patient is not a candidate for donation to [facility] due to dx of COVID-19. Case #[id number]
--- NOTE | 2021-07-28 15:33 | NUR ---
Support provided to Florian after his mother's passing. He has spoken with his grandmother and with Jaclyn, his aunt. He identified [facility] as his choice. Staff had gathered her belongings and these were sent home with Florian. I walked him out to his truck, helped carry his mother's belongings to the truck and waved good bye to him when he left. he seemed to be doing ok and reported he felt safe to drive himself home.
== END 2021-07-28 16:20 | disposition expired | DRG 208 ==
LOC: COL.ER 00:35 → ICU 01:48
PROVIDERS: Emergency Medicine; Internal Medicine; Internal Medicine Adult Congenital Heart Disease; Internal Medicine Critical Care Medicine; Internal Medicine Pulmonary Disease; Student in an Organized Health Care Education/Training Program; ADMIT Student in an Organized Health Care Education/Training Program
PROC: XW033E5 Introduction of Remdesivir Anti-infective into Peripheral Vein, Percutaneous Approach, New Technology Group 5 (ICD-10-PCS; 2021-07-18)
PROC: 02HV33Z Insertion of Infusion Device into Superior Vena Cava, Percutaneous Approach (ICD-10-PCS; 2021-07-18)
PROC: 5A09357 Assistance with Respiratory Ventilation, Less than 24 Consecutive Hours, Continuous Positive Airway Pressure (ICD-10-PCS; 2021-07-18)
PROC: 5A0935A Assistance with Respiratory Ventilation, Less than 24 Consecutive Hours, High Flow/Velocity Cannula (ICD-10-PCS; 2021-07-18)
PROC: 5A1945Z Respiratory Ventilation, 24-96 Consecutive Hours (ICD-10-PCS; principal; 2021-07-24)
PROC: 0BH17EZ Insertion of Endotracheal Airway into Trachea, Via Natural or Artificial Opening (ICD-10-PCS; 2021-07-24)
DX: U07.1 COVID-19 (principal); J12.82 Pneumonia due to coronavirus disease 2019; J96.01 Acute respiratory failure with hypoxia; I21.A1 Myocardial infarction type 2; N17.9 Acute kidney failure, unspecified; E87.1 Hypo-osmolality and hyponatremia; B37.0 Candidal stomatitis; I82.621 Acute embolism and thrombosis of deep veins of right upper extremity; I82.B11 Acute embolism and thrombosis of right subclavian vein; E87.8 Other disorders of electrolyte and fluid balance, not elsewhere classified; E87.6 Hypokalemia; E86.1 Hypovolemia; R73.9 Hyperglycemia, unspecified; N18.9 Chronic kidney disease, unspecified; I12.9 Hypertensive chronic kidney disease with stage 1 through stage 4 chronic kidney disease, or unspecified chronic kidney disease; K76.0 Fatty (change of) liver, not elsewhere classified; Z66 Do not resuscitate
CPT/HCPCS: 99223-AI; 99232-AI; 99233-AI; A4314; C1751; C9113; J0330; J0360; J0696; J1100; J1644; J1650; J1815; J1940; J2060; J2250; J2270; J2543; J2704; J3010; J3370; J7030; J7050; J7060; J7120; Q0249; Q9967